=== PATIENT | female | born 1955 | race Caucasian/White ===

== ENCOUNTER → 2017-07-02 06:11 | Outpatient (CLI) | payer SELFPAY ==
--- NOTE | 2017-07-02 | EMB_PTH ---
PATIENT: TIMOTEO GUILLAUME LOC: [facility] U#:[id number] AGE/SX: 69/F ROOM: RE07/02/[address]: Dr. Db Durbin MD : 1955 BED: DIS: SPEC #: [id number] RECD: 07/02/17 15:47 STATUS: GAIL HILLMAN #: [id number] ANAIS: 07/02/17 00:[address]: Db Durbin DEPT: SURGICAL PATHOLOGY RECD BY: Mehrdad Schmitz Tissues: Endometrium, NOS Procedures: Surgery Specimen Level IV Comments: @ Specimen number changed from [id number] to [id number] @ on 07/03/17 at 1007 by RGOOD. HEADER OPERATION: Endometrial biopsy PRE-OP DIAGNOSIS: N95.0 TISSUE SUBMITTED: Endometrial biopsy MICROSCOPIC DIAGNOSIS Endometrial biopsy: Scant minute fragments of benign endometrial tissue and mucus. See Comment. ARACELIS:kelly 07/04/17 COMMENT Correlation with clinical findings and appropriate followup are necessary. MICROSCOPIC DESCRIPTION Slides are reviewed. GROSS DESCRIPTION Received in fixative is one container labeled with the patient's name and designated EMB. The specimen consists of very minute fragments of tissue and mucoid material measuring in aggregate 0.5 x 0.4 x less than 0.1, totally submitted in on cassette. /RY:sp 07/03/17 TC: Cannot code CPT: 64663
[2017-07-08 16:13] LABS: HPV Reflexed? NOT INDICATED
== END ==
PROVIDERS: Visit Provider Obstetrics & Gynecology
DX: Z12.4 Encounter for screening for malignant neoplasm of cervix (principal); N95.0 Postmenopausal bleeding
CPT/HCPCS: 88175; 88305; G0145